=== PATIENT | male | born 1955 | race Caucasian/White ===

== ENCOUNTER 2023-07-27 21:16 | Inpatient (IN) | payer MEDICAID ==
[~2023-07-27] VITALS: Ht 170.2 cm; Wt 69.9 kg
[2023-07-27] MEDS ORDERED: LEVETIRACETAM 500MG PREMIX 100 ML IV ONE (22:15)
[2023-07-28 01:03] LABS: BASOPHILS % 0.2 % (0.0-2.0); HEMATOCRIT. 44.8 % (42.0-52.0); HEMOGLOBIN. 15.6 g/dL (14.0-18.0); LYMPHOCYTES % 11.5 % (20.0-50.0); MEAN CORPUSCULAR HEMOGLOBIN 32.6 pg (28.0-32.0); MEAN CORPUSCULAR HGB CONC 34.9 g/dL (31.0-37.0); MEAN CORPUSCULAR VOLUME 93.4 fL (80.0-94.0); MEAN PLATELET VOLUME 7.9 fl (7.4-10.4); MONOCYTES % 4.9 % (2.0-8.0); NEUTROPHILS % 83.4 % (40.0-76.0); PLATELET 178 x1000/uL (130-400); WHITE BLOOD COUNT 10.7 x1000/uL (4.5-11.0)
[2023-07-28 01:16] LABS: AMMONIA < 10 uMol/L (<32)
[2023-07-28 01:20] LABS: ALANINE AMINOTRANSFERASE 59 IU/L (10-49); ALBUMIN 4.3 g/dL (3.2-4.8); ASPARTATE AMINOTRANSFERASE 32 IU/L (<34); BILIRUBIN TOTAL 0.7 mg/dL (0.1-1.0); CALCIUM 9.1 mg/dL (8.7-10.4); CARBON DIOXIDE 27 mEq/L (21-32); CHLORIDE 105 mEq/L (98-107); CREATININE 0.7 mg/dL (0.6-1.3); GLUCOSE 110 mg/dL (70-105); PROTEIN TOTAL 7.6 g/dL (6.0-8.3); SODIUM 138 mEq/L (136-145); THYROID STIMULATING HORMONE 0.63 uIU/mL (0.55-4.78); TROPONIN I HIGH SENSITIVITY 20 ng/L (3.0-53); UREA NITROGEN BLOOD 7 mg/dL (9-23)
[2023-07-28 01:23] LABS: ETHANOL BLOOD < 10 mg/dL (<10)
[2023-07-28 04:42] LABS: TROPONIN I HIGH SENSITIVITY 25 ng/L (3.0-53)
[2023-07-28 12:56] LABS: CLARITY URINE CLEAR (CLEAR); COLOR URINE YELLOW (YELLOW); GLUCOSE URINE NEGATIVE (NEGATIVE); KETONES URINE NEGATIVE (NEGATIVE); LEUKOCYTE ESTERASE URINE NEGATIVE (NEGATIVE); NITRITE URINE NEGATIVE (NEGATIVE); OCCULT BLOOD URINE NEGATIVE (NEGATIVE); PH URINE 6.5 (4.5-8.0); PROTEIN URINE NEGATIVE (NEGATIVE); SPECIFIC GRAVITY URINE 1.013 (1.005-1.030)
[2023-07-28 15:19] LABS: *AMPHETAMINES SCREEN URINE NEGATIVE (NEGATIVE); *BARBITURATES SCREEN URINE NEGATIVE (NEGATIVE); *BENZODIAZEPINES SCREEN URINE PRESUMPTIVE POSITIVE (NEGATIVE); *COCAINE SCREEN URINE NEGATIVE (NEGATIVE); CANNABINOID URINE SCREEN PRESUMPTIVE POSITIVE (NEGATIVE); ECSTASY MDMA SCREEN URINE NEGATIVE (NEGATIVE); METHADONE URINE SCREEN Neg (NEGATIVE); OPIATES URINE SCREEN NEGATIVE (NEGATIVE); PHENCYCLIDINE URINE SCREEN NEGATIVE (NEGATIVE)
[2023-07-28] MEDS ORDERED: HYDROCODONE/ACETAMINOPHEN 10/325MG TABLET PO PRN (22:15)
[2023-07-28] MEDS ORDERED: CLONIDINE 0.1MG TABLET PO PRN (22:15)
[2023-07-28] MEDS ORDERED: ACETAMINOPHEN 325MG TABLET PO PRN (22:15)
[2023-07-28] MEDS ORDERED: MAGNESIUM/ALUMINUM HYDROXIDE/SIMETHICONE 30ML UDC PO PRN (22:15)
[2023-07-29] VITALS (7 sets, daily range): BP systolic 123–168; BP diastolic 71–89; PULSE 58–74; RESP 18–19; TEMP 97.3–98.6
[2023-07-29 06:52] LABS: AMMONIA 25 uMol/L (<32)
[2023-07-29 07:24] LABS: BASOPHILS % 0.2 % (0.0-2.0); DIFFERENTIAL COMMENT 0; EOSINOPHILS % 0.6 % (0.0-5.0); HEMATOCRIT. 43.5 % (42.0-52.0); HEMOGLOBIN. 15.6 g/dL (14.0-18.0); LYMPHOCYTES % 27.2 % (20.0-50.0); MEAN CORPUSCULAR HEMOGLOBIN 32.7 pg (28.0-32.0); MEAN CORPUSCULAR HGB CONC 35.9 g/dL (31.0-37.0); MEAN CORPUSCULAR VOLUME 91.2 fL (80.0-94.0); MEAN PLATELET VOLUME 8.6 fl (7.4-10.4); MONOCYTES % 8.8 % (2.0-8.0); NEUTROPHILS % 63.2 % (40.0-76.0); PLATELET 176 x1000/uL (130-400); RED BLOOD CELL COUNT 4.77 mill/uL (4.7-6.1); RED CELL DISTRIBUTION WIDTH 13.4 % (11.6-14.6); WHITE BLOOD COUNT 8.3 x1000/uL (4.5-11.0)
[2023-07-29 08:07] LABS: ALANINE AMINOTRANSFERASE 55 IU/L (10-49); ASPARTATE AMINOTRANSFERASE 35 IU/L (<34); BILIRUBIN DIRECT 0.4 mg/dL (<=3.0); BILIRUBIN TOTAL 1.1 mg/dL (0.1-1.0); CALCIUM 8.9 mg/dL (8.7-10.4); CARBON DIOXIDE 25 mEq/L (21-32); CHLORIDE 105 mEq/L (98-107); CHOLESTEROL 157 mg/dL (<200); CREATININE 0.7 mg/dL (0.6-1.3); GLUCOSE 107 mg/dL (70-105); HDL CHOLESTEROL 43 mg/dL (>55); LDL CHOLESTEROL 112 mg/dL (5-100); PHOSPHORUS 2.8 mg/dL (2.5-4.9); POTASSIUM 3.9 mEq/L (3.5-5.1); PROTEIN TOTAL 7.2 g/dL (6.0-8.3); SODIUM 138 mEq/L (136-145); T4 FREE 1.05 ng/dL (0.89-1.76); THYROID STIMULATING HORMONE 1.74 uIU/mL (0.55-4.78); TRIGLYCERIDE 100 mg/dL (0-150); TROPONIN I HIGH SENSITIVITY 8 ng/L (3.0-53); UREA NITROGEN BLOOD 13 mg/dL (9-23)
[2023-07-29] MEDS: ENOXAPARIN 40MG/0.4ML SYR SUBCUT SCH (08:34)
[2023-07-29] MEDS: LEVETIRACETAM 500MG TABLET PO SCH ×2 (08:34→21:23)
[2023-07-29] MEDS ORDERED: NALOXONE HCL 0.4MG/ML VIAL IV PRN (10:00)
[2023-07-29] MEDS: RISPERIDONE 0.5MG TABLET PO SCH (21:23)
[2023-07-30 04:00] VITALS: BP 128/73; PULSE 57; RESP 16; TEMP 96.9
[2023-07-30 06:52] LABS: BASOPHILS % 0.2 % (0.0-2.0); EOSINOPHILS % 0.8 % (0.0-5.0); HEMATOCRIT. 45.2 % (42.0-52.0); HEMOGLOBIN. 15.1 g/dL (14.0-18.0); LYMPHOCYTES % 35.5 % (20.0-50.0); MEAN CORPUSCULAR HEMOGLOBIN 31.3 pg (28.0-32.0); MEAN CORPUSCULAR HGB CONC 33.5 g/dL (31.0-37.0); MEAN CORPUSCULAR VOLUME 93.7 fL (80.0-94.0); MEAN PLATELET VOLUME 8.7 fl (7.4-10.4); MONOCYTES % 10.1 % (2.0-8.0); NEUTROPHILS % 53.4 % (40.0-76.0); PLATELET 175 x1000/uL (130-400); RED BLOOD CELL COUNT 4.83 mill/uL (4.7-6.1); WHITE BLOOD COUNT 7.3 x1000/uL (4.5-11.0)
[2023-07-30 07:22] LABS: CALCIUM 9.5 mg/dL (8.7-10.4); CARBON DIOXIDE 25 mEq/L (21-32); CHLORIDE 105 mEq/L (98-107); CREATININE 0.6 mg/dL (0.6-1.3); GLUCOSE 109 mg/dL (70-105); POTASSIUM 3.9 mEq/L (3.5-5.1); SODIUM 138 mEq/L (136-145); UREA NITROGEN BLOOD 11 mg/dL (9-23)
[2023-07-30 08:02] VITALS: BP 169/90; PULSE 70; RESP 19; TEMP 97.1
[2023-07-30] MEDS: LEVETIRACETAM 500MG TABLET PO SCH (09:05)
[2023-07-30] MEDS: RISPERIDONE 0.5MG TABLET PO SCH (09:05)
[2023-07-30] MEDS: ENOXAPARIN 40MG/0.4ML SYR SUBCUT SCH (09:05)
[2023-07-30 12:08] VITALS: BP 138/88; PULSE 62; RESP 18; TEMP 96.8
[2023-07-30] MEDS ORDERED: RISP05 PO (14:54)
[2023-07-30] MEDS ORDERED: KEPP500 PO (14:54)
[2023-07-30 15:09] VITALS: BP 138/88; PULSE 62; TEMP 96.8; O2SAT 99
== END 2023-07-30 17:18 | disposition home or self-care (01) | DRG 53 ==
LOC: EDBD 21:16 → ER 21:16 → EDBEDREQTM 07-28 17:09 → EDBEDREQ 07-28 17:09 → MICUSO 07-28 17:11 → 6WST 07-29 01:16
PROVIDERS: ADMIT Family Medicine Adult Medicine; ATTEND Family Medicine Adult Medicine
PROC: 4A00X4Z Measurement of Central Nervous Electrical Activity, External Approach (ICD-10-PCS; principal; 2023-07-30)
DX: G40.89 Other seizures (principal); G93.89 Other specified disorders of brain; F29 Unspecified psychosis not due to a substance or known physiological condition; Z86.73 Personal history of transient ischemic attack (TIA), and cerebral infarction without residual deficits
CPT/HCPCS: 36415; 71045; 80048; 80053; 80061; 80076; 80305; 80320; 81003; 82140; 83735; 84100; 84439; 84443; 84484; 85025; 93005; 95816; 96365; 99285; J1650; J1953; G0480